=== PATIENT | male | born 1990 | race Caucasian/White ===

== ENCOUNTER 2023-10-11 07:26 | Day surgery (SDC) | payer BC ==
[2023-10-11] MEDS ORDERED: Propofol 200 MG/20 ML SDV ONE ×3 (07:50→08:38)
[2023-10-11] MEDS ORDERED: Lidocaine 2% 5 ML SDV ONE (07:50)
[2023-10-11] MEDS: Lactated Ringers 1,000 ML IV SCH (07:57)
[2023-10-11] MEDS ORDERED: Phenylephrine HCl In 0.9% NaCl 1 MG/10 ML Syringe ONE (08:09)
[2023-10-11] MEDS ORDERED: dexmedeTOMIDine HCl 200 MCG/2 ML SDV ONE (08:33)
[2023-10-11] MEDS ORDERED: Water For Injection, Sterile 20 ML ONE (08:33)
[2023-10-11] MEDS ORDERED: Lactated Ringers 1,000 ML IV SCH (09:00)
== END 2023-10-11 09:43 | disposition home or self-care (01) ==
LOC: MW.SDS 07:26
PROVIDERS: ATTEND Surgery
DX: K29.50 Unspecified chronic gastritis without bleeding (principal); K21.9 Gastro-esophageal reflux disease without esophagitis; K42.9 Umbilical hernia without obstruction or gangrene; F17.290 Nicotine dependence, other tobacco product, uncomplicated; Z79.899 Other long term (current) drug therapy
CPT/HCPCS: 43239; J2704; J7120; 00731; J3490

== ENCOUNTER 2023-10-14 06:38 | Day surgery (SDC) | payer BC ==
[~2023-10-14 06:38] MED LIST: ceFAZolin 2 GM in Sodium Chloride 0.9% 50 ML IV ONE
[2023-10-14] MEDS ORDERED: droPERidol 5 MG/2 ML SDV IVPUSH PRN (07:05)
[2023-10-14] MEDS ORDERED: Metoclopramide 10 MG/2 ML SDV IVPUSH PRN (07:05)
[2023-10-14] MEDS ORDERED: fentaNYL 50 MCG/ML SDV IVPUSH PRN (07:05)
[2023-10-14] MEDS ORDERED: Naloxone 0.4 MG/ML SDV IVPUSH PRN (07:05)
[2023-10-14] MEDS ORDERED: Ondansetron 4 MG/2 ML SDV IVPUSH PRN (07:05)
[2023-10-14] MEDS ORDERED: Morphine 2 MG/ML SYRINGE IVPUSH PRN (07:05)
[2023-10-14] MEDS ORDERED: HYDROmorphone 1 MG/ML Syringe IVPUSH PRN (07:05)
[2023-10-14] MEDS ORDERED: Albuterol 0.083% 2.5 MG/3 ML Neb Soln NEB PRN (07:05)
[2023-10-14] MEDS ORDERED: Bupivacaine 0.5% 30 ML SDV ONE (07:10)
[2023-10-14] MEDS: Lactated Ringers 1,000 ML IV SCH (07:21)
[2023-10-14] MEDS ORDERED: Propofol 200 MG/20 ML SDV ONE ×2 (07:32→10:58)
[2023-10-14] MEDS ORDERED: fentaNYL 250 MCG/5 ML SDV ONE (07:34)
[2023-10-14] MEDS ORDERED: Ropivacaine 0.5% 5 MG/ML 30 ML SDV ONE (07:40)
[2023-10-14] MEDS ORDERED: Famotidine 20 MG/2 ML SDV ONE (07:40)
[2023-10-14] MEDS ORDERED: Morphine 10 MG/ML SDV ONE (07:43)
[2023-10-14] MEDS ORDERED: ceFAZolin 2 GM Vial ONE (08:09)
[2023-10-14] MEDS ORDERED: Ondansetron 4 MG/2 ML SDV ONE (08:26)
[2023-10-14] MEDS ORDERED: Dexamethasone 4 MG/ML 5 ML MDV ONE (08:26)
[2023-10-14] MEDS ORDERED: Ketorolac 30 MG/ML SDV ONE (08:26)
[2023-10-14] MEDS ORDERED: Rocuronium Bromide 50 MG/5 ML Syringe ONE (08:26)
[2023-10-14] MEDS ORDERED: Acetaminophen/HYDROcodone 325-5 MG Tab PO PRN (08:52)
[2023-10-14] MEDS ORDERED: Lactated Ringers 1,000 ML IV SCH (09:00)
[2023-10-14] MEDS ORDERED: Water For Injection, Sterile 20 ML ONE (12:58)
[2023-10-14] MEDS ORDERED: Sugammadex Sodium 200 MG/2 ML VIAL IV ONE (13:00)
[2023-10-14] MEDS ORDERED: Lidocaine 2% 11 ML Jelly Filled Syringe ONE (13:02)
== END 2023-10-14 10:05 | disposition home or self-care (01) ==
LOC: MW.SDS 06:38
PROVIDERS: ATTEND Surgery
DX: K42.0 Umbilical hernia with obstruction, without gangrene (principal); K21.9 Gastro-esophageal reflux disease without esophagitis; F17.290 Nicotine dependence, other tobacco product, uncomplicated; Z79.899 Other long term (current) drug therapy
CPT/HCPCS: 49592; 64488; A9270; J0665; J0690; J1100; J1885; J2270; J2405; J2704; J2795; J3010; J3490; J7120